=== PATIENT | female | born 1960 | race Caucasian/White ===

== ENCOUNTER 2025-03-23 12:13 | Emergency (ER) | payer OTHER ==
--- NOTE | 2025-03-23 13:51 | RAD REPORT ---
EXAMINATION: XR Femur Right CLINICAL INDICATION: Female, 64 years old. PAIN RIGHT TECHNIQUE: 2 view radiograph of the right femur were obtained. COMPARISON: No prior exam. FINDINGS: No evidence of fracture or dislocation. Normal alignment. Mild degenerative hip and knee grace int degenerative changes. No other focal bone lesion. Soft tissues are unremarkable. IMPRESSION: No acute osseous abnormalities. Mild degenerative changes.
--- NOTE | 2025-03-23 13:52 | RAD REPORT ---
EXAMINATION: CT PELVIS WITHOUT CONTRAST CLINICAL INDICATION: Female, 64 years old.[facility] MAIN fall,possible ischium/pubic rami Bed Name: [id number] TECHNIQUE: CT pelvis was performed, without IV contrast, as per department protocol. Axial, sagittal and coronal reconstructions were obtained. One or more of the following dose reduction techniques were used: Automated exposure control, adjustment of the mA and/or kV according to patient size, and/ or iterative reconstruction. Unless otherwise specified, incidental findings do not require dedicated imaging follow-up. COMPARISON: No prior exam. FINDINGS: The lack of intravenous contrast limits the sensitivity of this exam for evaluation of solid visceral organs, vascular structures, and retroperitoneum. MUSCULOSKELETAL: No acute or suspicious osseous abnormality. Lower lumbar spine degenerative changes with asymmetric disc height loss on the right at L4-5 and on the left at L3-4. URINARY SYSTEM: No abnormalities of the included kidneys and ureters. Urinary bladder is unremarkable . GASTROINTESTINAL TRACT: Included small bowel is normal in caliber. No wall thickening or bowel inflam matory changes. Mild distal colonic diverticulosis. LYMPH NODES: No lymphadenopathy. ABDOMINAL AORTA AND OTHER VESSELS: Normal caliber aorta and IVC. Moderate atherosclerotic calcific pl aque. ADDITIONAL FINDINGS: None. IMPRESSION: No acute abnormalities of the bony pelvis. Evaluation limited by lack of IV contrast. Incidental findings as above.
--- NOTE | 2025-03-23 14:00 | ER ---
Nurse's Notes [facility] Name: Emelia Lewis Age: 64 yrs Sex: Female : 1960 Arrival Date: 03/23/2025 Time: 12:13 Bed 11 Private MD: Diagnosis: Contusion of right hip Presentation: 03/23 12:26 Chief complaint: Patient states: fell last night, slipped on paper plate , landed on iw her bottom, now has pain to right hip. 12:26 Acuity: AMY 3 iw 12:27 Coronavirus screen: At this time, the client does not indicate any symptoms associated iw with coronavirus-19. Ebola Screen: No symptoms or risks identified at this time. Initial Sepsis Screen: Does the patient meet any 2 criteria? No. Patient's initial sepsis screen is negative. Does the patient have a suspected source of infection? No. Patient's initial sepsis screen is negative. Risk Assessment: Do you want to hurt yourself or someone else? Patient reports no desire to harm self or others. Onset of symptoms was March 22, 2025. 12:27 Method Of Arrival: Wheelchair iw Historical: - Allergies: 12:28 No Known Allergies; iw - PMHx: 12:28 COPD; Myocardial infarction; iw 12:29 throat cancer; iw - PSHx: 12:28 artificial valve; iw - Immunization history:: Adult Immunizations not up to date. - Infectious Disease History:: Denies. - Social history:: Smoking status: Patient reports the use of cigarette tobacco products, smokes one pack cigarettes per day. - Family history:: not pertinent. - Hospitalizations: : No recent hospitalization is reported. Screenin:12 [facility] ED Fall Risk Assessment (Adult) History of falling in the last 3 months, ll1 including since admission Yes- single mechanical fall (1 pt) Confusion or Disorientation No (0 pts) Intoxicated or Sedated No (0 pts) Impaired Gait Yes (1 pt) Mobility Assist Device Used Yes (1 pt) Altered Elimination No (0 pt) Score/Fall Risk Level 3 or more points = High Risk Maintained a safe environment, Hourly rounding (assess needs \T\ fall precautionary measures) done, Used ambulatory aids as needed (educated on \T\ assisted with). Abuse screen: Denies threats or abuse. Nutritional screening: No deficits noted. Tuberculosis screening: No symptoms or risk factors identified. Assessment: 12:37 General: Appears uncomfortable, Behavior is calm, cooperative, appropriate for age. ll1 Pain: Complains of pain in R hip Quality of pain is described as aching, crampy. Musculoskeletal: Reports pain in R hip. Injury Description: Bruise sustained to R hip/buttocks. 14:11 Reassessment: No changes from previously documented assessment. Patient and/or family ll1 updated on plan of care and expected duration. Pain level reassessed. Patient is alert, oriented x 3, equal unlabored respirations, skin warm/dry/pink. Vital Signs: 12:27 BP 145 / 69; Pulse 93; Resp 16; Pulse Ox 94% ; Weight 49.9 kg; Height 5 ft. 4 in. ; iw Pain 0/10; 14:11 BP 141 / 61; Pulse 86; Resp 17; Pulse Ox 95% ; ll1 12:27 Body Mass Index 18.88 (49.90 kg, 162.56 cm) iw 12:27 Pain Scale: Adult iw ED Course: 12:17 Patient arrived in ED. gl 12:21 Sean Saleem MD is Attending Physician. rn 12:27 Triage completed. iw 12:29 Arm band placed on. iw 12:37 Lupe Gunderson, AMBER is Primary Nurse. ll1 12:37 Patient placed in an exam room, on a stretcher. ll1 12:43 CT Pelvis wo Cont In Process Unspecified. EDMS 12:52 XRAY Femur RIGHT In Process Unspecified. EDMS 14:12 Patient has correct armband on for positive identification. Provided Education on: do ll1 not drink alcohol or drive on prescribed pain medication, verbalized understanding. . 14:12 No provider procedures requiring assistance completed. Patient did not have IV access ll1 during this emergency room visit. Administered Medications: No medications were administered Medication: 14:13 VIS not applicable for this client. ll1 Outcome: 14:00 Discharge ordered by . rn 14:12 Discharged to home ambulatory, ll1 14:12 Condition: stable 14:12 Discharge instructions given to patient, Instructed on discharge instructions, follow up and referral plans. no driving heavy equipment, medication usage, Demonstrated understanding of instructions, follow-up care, medications, Prescriptions given X 1, 14:13 Patient left the ED. ll1 Signatures: Dispatcher [employer] Marilou Hudson, AMBER CLARK iw Sean Saleem MD MD rn Lewis, Lynsay, RN RN ll1 Clair Granados, Reg Reg gl Corrections: (The following items were deleted from the chart) 12: 12:27 BP 145 / 69; Pulse 93bpm; Resp 16bpm; Pulse Ox 94%; Pain 0/10, Adult; [facility] 12: 12:27 BP 145 / 69; Pulse 93bpm; Resp 16bpm; Pulse Ox 94%; Pain 0/10, Adult; [facility]
--- NOTE | 2025-03-23 14:00 | EDPHYS ---
Physician Documentation [facility] Name: Emelia Lewis Age: 64 yrs Sex: Female : 1960 Arrival Date: 03/23/2025 Time: 12:13 Bed 11 Private MD: ED Physician Sean Saleem HPI: 03/23 13:16 This 64 yrs old Unknown Female presents to ER via Wheelchair with complaints of Fall rn Injury. 13:16 Details of fall: The patient fell from an upright position. rn 13:16 Onset: The symptoms/episode began/occurred last night. Patient reports was walking and rn slipped on a paper plate on the floor. Fell onto buttocks and right hip. Patient reports pain in groin and right buttocks. No other injury. Ambulatory. Patient reports only certain movements and positions hurt. Historical: - Allergies: 12:28 No Known Allergies; iw - PMHx: 12:28 COPD; Myocardial infarction; iw 12:29 throat cancer; iw - PSHx: 12:28 artificial valve; iw - Immunization history:: Adult Immunizations not up to date. - Infectious Disease History:: Denies. - Social history:: Smoking status: Patient reports the use of cigarette tobacco products, smokes one pack cigarettes per day. - Family history:: not pertinent. - Hospitalizations: : No recent hospitalization is reported. ROS: 13:16 Constitutional: Negative for fever, chills, and weight loss, Neck: Negative for injury, rn pain, and swelling, Cardiovascular: Negative for chest pain, palpitations, and edema, Respiratory: Negative for shortness of breath, cough, wheezing, and pleuritic chest pain, Abdomen/GI: Negative for abdominal pain, nausea, vomiting, diarrhea, and constipation, Back: Negative for injury and pain, MS/Extremity: Positive for right hip and buttock pain as well as right groin pain Skin: Negative for injury, rash, and discoloration, Neuro: Negative for headache, weakness, numbness, tingling, and seizure, Exam: 13:16 Constitutional: This is a well developed, well nourished patient who is awake, alert, rn and in no acute distress. Neck: No midline cervical tenderness Cardiovascular: Regular rate and rhythm. No pulse deficits. Respiratory: No increased work of breathing, no retractions or nasal flaring. Abdomen/GI: Soft, non-tender Back: No midline spinal tenderness. MS/ Extremity: Pulses equal, no cyanosis. Neurovascular intact. Full, normal range of motion. Equal circumference. Neuro: Awake and alert, GCS 15 Vital Signs: 12:27 BP 145 / 69; Pulse 93; Resp 16; Pulse Ox 94% ; Weight 49.9 kg; Height 5 ft. 4 in. ; iw Pain 0/10; 14:11 BP 141 / 61; Pulse 86; Resp 17; Pulse Ox 95% ; ll1 12:27 Body Mass Index 18.88 (49.90 kg, 162.56 cm) iw 12:27 Pain Scale: Adult iw MDM: 12:22 Medical Screening Exam initiated rn 13:59 Differential diagnosis: contusion, fracture, sprain, strain. Data reviewed: vital rn signs, nurses notes, radiologic studies, CT scan, plain films, and as a result, I will discharge patient. Counseling: I had a detailed discussion with the patient and/or guardian regarding the historical points, exam findings, and any diagnostic results supporting the discharge/admit diagnosis, radiology results, the need for outpatient follow up, to return to the emergency department if symptoms worsen or persist or if there are any questions or concerns that arise at home. Special discussion: I discussed with the patient/guardian in detail that at this point there is no indication for admission to the hospital. It is understood, however, that if the symptoms persist or worsen the patient needs to return immediately for re-evaluation. ED course: No acute findings specifically no acute traumatic findings. Will discharge home with return precautions. 03/23 12:34 Order name: XRAY Femur RIGHT; Complete Time: 13:55 rn 03/23 12:34 Order name: CT Pelvis wo Cont; Complete Time: 13:55 rn Administered Medications: No medications were administered Disposition Summary: 03/23/25 14:00 Discharge Ordered Notes: Location: Home rn Problem: new rn Symptoms: have improved rn Condition: Stable rn Diagnosis - Contusion of right hip rn Followup: rn - With: Private Physician - When: As needed - Reason: Recheck today's complaints, Re-evaluation by your physician Discharge Instructions: - Discharge Summary Sheet rn - Contusion rn Forms: - Medication Reconciliation Form rn - Antibiotic insurance defense attorney - Prescription Opioid Use rn - Patient Portal Instructions rn - Leadership Thank You Letter rn Prescriptions: - Tramadol 50 mg Oral Tablet - take 1 tablet ORAL route every 8 hours as needed; 12 tablet; Refills: 0, rn Product Selection Permitted Signatures: Dispatcher [employer] Marilou Hudson RN RN Sean Larkin MD MD editorial intern: (The following items were deleted from the chart) 12:34 12:34 Femur Right+RAD.RAD.BRZ ordered. EDMS EDMS 12:34 12:34 Pelvis Wo Cont+CT.RAD.BRZ ordered. EDMS EDMS
[2025-03-23 15:03] VITALS: BP 141/61; O2SAT 95
== END 2025-03-23 14:13 | disposition home or self-care (01) ==
LOC: ER 12:13
DX: S70.01XA Contusion of right hip, initial encounter (principal); W01.0XXA Fall on same level from slipping, tripping and stumbling without subsequent striking against object, initial encounter; F17.210 Nicotine dependence, cigarettes, uncomplicated
CPT/HCPCS: 72192; 99283